=== PATIENT | male | born 1965 | race Asian ===

== ENCOUNTER 2020-10-02 12:35 | Outpatient (REF) | payer OTHER, SELFPAY ==
--- NOTE | ~2020-10-02 | XR_ITS ---
EXAMINATION: XR CHEST CLINICAL INFORMATION: Contact with and suspected exposure to other hazardous, chiefly nonmedicinal, chemicals. COMPARISON: None. TECHNIQUE: 2 views of the chest were obtained. FINDINGS: No significant abnormality is noted involving the heart, lungs, mediastinum, bony thorax or soft tissues. XR/XR chest 2V IMPRESSION: Unremarkable examination.
== END 2020-10-02 12:36 | disposition home or self-care (01) ==
LOC: HO.HMGCX 12:35
PROVIDERS: PCP Internal Medicine; Visit Provider Nurse Practitioner Family
DX: Z77.098 Contact with and (suspected) exposure to other hazardous, chiefly nonmedicinal, chemicals (principal)
CPT/HCPCS: 71046

== ENCOUNTER 2024-09-27 11:03 | Outpatient (REF) | payer OTHER, SELFPAY ==
--- NOTE | ~2024-09-27 | XR_ITS ---
EXAMINATION: XR KNEE, LEFT CLINICAL INFORMATION: M25.562 - Pain in left knee COMPARISON: December 22, 2018. TECHNIQUE: Two views of the left knee. FINDINGS: Joint space narrowing involving the medial compartment with sclerosis along the articular surface of the medial tibial plateau. Small marginal osteophyte formation and medial femoral condyle. Suprapatellar bursa joint effusion, moderate to large volume. No acute cortical disruption or gross malalignment. No lytic or blastic lesions. 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 Suprapatellar bursa joint effusion. Electronically signed by: Brian Amaya MD 09/27/2024 02:39 PM EDT
== END 2024-09-27 11:04 | disposition home or self-care (01) ==
LOC: HO.HMGCX 11:03
PROVIDERS: PCP Nurse Practitioner Family; Visit Provider Nurse Practitioner Family
DX: Z00.00 Encounter for general adult medical examination without abnormal findings (principal); I10 Essential (primary) hypertension; M25.562 Pain in left knee; G89.29 Other chronic pain; H52.10 Myopia, unspecified eye; Z71.85 Encounter for immunization safety counseling
CPT/HCPCS: 73560; 96127; 99202; 99386

== ENCOUNTER 2024-09-27 11:03 | Outpatient (AMB) | payer OTHER, SELFPAY ==
--- NOTE | 2024-09-27 11:07 | A.OFFPC_ITS ---
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 Note: patient here for new patient visit c/o swelling knee Customer Orders Clerk Required: No Allergies No Known Allergies Allergy (Verified 09/27/24 11:18) Medication List - Last Reconciled 09/27/24 by Robert Ingram CNP No Known Home Meds Tobacco use date assessed: 09/27/24 Dental Screening Dental Screen Date: 09/27/24 Did you have a dental visit in the last 12 months?: No Did you have a dental problem in the last 6 months where you did not have access to dental care?: No Was dental information given to patient?: Yes HPI HPI Comments History of Present Illness Details 58-year-old male presents to establish c are. He is not on medications. Prior PCP? - Roxy PETERSON Last office visit/CPE/labs - 4 years ago Acute issue(s) - He reports occasional headaches and vi sual disturbances. - He reports persistent pain above his l eft knee for the past 6-8 months and p rogressively worsened. He describes the pain as sharp, and intensifies with walking and prolonged standing. 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 He does not take pain medications because he does not like taking medication. He denies fall, injury, or trauma. - Myopia. He wears prescription glasses Past Medical History - Myopia Surgical History - None Family History - Dad: Asthma, cardiovascular disease, hypertension, diabetes - Mom: Hypertension Social History - Nonsmoker. Does not vape. Does not dri nk alcohol. Denies recreational drug use - Has been making healthy dietary choice s. Active but does not exercise. Generally sleep well Health maintenance - Last eye exam was 2 years ago. - Last dental visit was few months ago [place]; He will soon establish care with a dentist in the [facility] - Last tetanus vaccine was more than 10 years ago; He will receive the Tdap vaccine at his next visit - He has never been vaccinated for shing les - Has not been vaccinated for the flu season; declines vaccination - He has never had a colonoscopy done [facility] Family History (Updated 09/27/24 @ 11:19 by Meghan Rosas MA) Father Asthma High blood pressure Diabetes Cardiovascular disease Mother High blood pressure Social History Housing: House Patient Tobacco Use Status: Never used Tobacco e-Cigarette/Vaping Use: Never Used Second Hand Smoke Exposure: No service: No Current occupational status: employed 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 1. Little interest or pleasure in doing things: not at all 2. Feeling down, depressed, or hopeless: not at all 3. Trouble falling or staying asleep, or sleeping too much: not at all 4. Feeling tired or having little energy: not at all 5. Poor appetite or overeating: not at all 6. Feeling bad about yourself - or that you are a failure or have let yourself or your family down: not at all 7. Trouble concentrating on things, such as reading the newspaper or watching television: not at all 8. Moving or speaking so slowly that other people could have noticed. Or the opposite - being so fidgety or restless that you have been moving around a lot more than usual: not at all 9. Thoughts that you would be better off or of hurting yourself in some way: not at all Total score: 0 Depression Screening Interpretation: Negative Depression Screening Done: Yes 46162 - PHQ-9 Billing: Yes Source: Developed by Drs. Clark Kingston, Monica Neumann, Dimitri Herr and colleagues, with an educational refugio from [employer]. Thrive Questionnaire Date Thrive assessed: 09/27/24 I am a: Patient What is your living situation today?: I have a steady place to live Within the past 12 months, did the food you bought not last and you didn't have the money to get more?: Never true Within the past 12 months, did you worry whether your food would run out before you got money to buy more?: Never true Do you have trouble paying for medicines?: No Do you have trouble getting transportation to medical appointments?: No Do you have trouble paying your heating and electricity bill?: No Do you have trouble taking care of your child, family member or friend?: No Do you have trouble with day-to-day activities such as bathing, preparing meals, shopping, managing finances, etc.?: No Are you currently unemployed and looking for a job?: No Are you interested in more education?: No Please select the resources that you would like help with: None Currently or been in a relationship where the following occur: No concerns reported THRIVE Score: 0 AUDIT C Alcohol Use Questionnaire (AUDIT-C) 1. How often do you have a drink containing alcohol?: Never 3. How often do you have six or more drinks on one occasion?: Never Total Score: 0 Score Reviewed/Action Taken: Yes MACY-7 AMB Questionnaire MACY-7 Date MACY - 7 assessed: 09/27/24 Feeling nervous, anxious, or on edge: 0 = Not at all Not being able to stop or control worryin = Not at all Worrying too much about different things: 0 = Not at all Trouble relaxin = Not at all Being so restless that it is hard to sit still: 0 = Not at all Becoming easily annoyed or irritable: 0 = Not at all Feeling afraid as if something awful might happen: 0 = Not at all Total MACY-7 score (0-4 normal; 5-9 mild; 10-14 moderate; 15-21 severe): 0 Source: Developed by Drs. Clark Kingston, Monica Neumann, Dimitri Herr and colleagues, with an educational refugio from [employer]. MACY-7 Assessment Billing MACY-7 Assessment Tool: MACY-7 Assessment 25008 Review of Systems Const Details: Denies chills, Denies fatigue, Denies fever(s), Denies headache(s) and Denies weakness HEENT Denies change in vision, Denies dizziness, Denies headache(s), Denies hearing loss, Denies nasal congestion, Denies sinus pain, Denies sinus pressure and Denies sore throat Card Denies chest pain, Denies lightheadedness, Denies dyspnea and Denies other (palpitations) Resp Denies cough, Denies dyspnea and Denies wheezing GI Denies abdominal pain, Denies melena, Denies hematochezia, Denies change in bowel habits, Denies dyspepsia and Denies nausea Denies hematuria and Denies dysuria Musc Report pain above the left knee, Denies abnormal gait, Denies numbness and Denies tingling Skin/Breast Denies rash, Denies unusual bruising and Denies wounds Neuro Denies abnormal gait, Denies dizziness, Denies headache(s), Denies memory loss, Denies numbness, Denies Sensory deficit (Neuro), Denies tingling and Denies weakness Psych Denies anxiety, Denies depression and Denies memory loss Endo Denies cold intolerance, Denies fatigue, Denies heat intolerance, Denies polydipsia and Denies polyuria Jared/Lymph Denies easy bleeding and Denies easy bruising Aller/Immun Denies wheezing Physical exam (Primary Care) Vital Signs: Last Vital Signs Temp 98.4 F 09/27/24 11:13 Pulse 68 09/27/24 11:31 Resp 16 09/27/24 11:13 BP 164/82 H 09/27/24 13:11 Pulse Ox 99 09/27/24 11:13 Oxygen Delivery Method Room Air 09/27/24 11:13 BMI result Body Mass Index 29.6 Tobacco/Smoking Status: Tobacco use Status Tobacco use date assessed 09/27/24 09/27/24 11:13 Patient Tobacco Use Status Never used Tobacco 09/27/24 11:13 e-Cigarette/Vaping Use Never Used 09/27/24 11:13 PHQ-9: PHQ-9 Score PHQ-9: Total score 0 09/27/24 13:11 Depression Screening Interpretation: Negative Thrive Assessment: Date of Thrive Assessment Date Thrive assessed 09/27/24 09/27/24 11:13 Currently or been in a relationship where the following occur: No concerns reported Const Other: General: no acute distress, well developed, alert and awake Nutritional Appearance: well nourished Orientation/consciousness: patient oriented x3 HENMT Head: Yes normocephalic and Yes atraumatic Ears: hearing grossly normal bilaterally and TM's normal bilaterally General nose exam: Normal external nose present and Normal nares present Mouth: Normal oral and palatal mucosa present and moist mucous membranes Teeth and gingiva: dentition normal Throat: Yes oropharynx normal Eyes Pupils: Equal, round and reactive pupils present and Pupil accommodation reflex normal EOM: EOMs intact bilaterally Neck Neck: Yes normal visual inspection, Yes no lymphadenopathy and Yes trachea midline Thyroid: Thyroid normal Carotids: no bruits Lymphatic: no lymphadenopathy noted Chest Chest palpation & inspection: normal inspection of the chest Resp Effort & Inspection: normal respiratory effort Auscultation: clear to auscultation bilaterally Cardio Rate: regular rate Rhythm: regular rhythm Heart sounds: S1 normal heart sound present, S2 normal heart sound present, no gallops, no murmurs and no rubs Bruits: no abdominal aortic bruits and no carotid bruits GI Palpation (GI): No Abdominal aortic bruit present, Soft to palpation, nontender, No hepatosplenomegaly present and No Rebound tenderness present Auscultation: normal bowel sounds General: Yes no CVA tenderness Back/Spine/Pelvis Back: no CVA tenderness Cervical Spine: cervical ROM normal and No Cervical spine tenderness Thoracic/Lumbar Spine: thoraco-lumbar ROM normal, No pain with thoraco-lumbar ROM, No thoracic spinal tenderness and No lumbar spinal tenderness Skin General: warm and dry. Normal skin color. Normal skin turgor Lesions: no lesions Rashes: no rashes Trauma: no lacerations or abrasions Wounds: no wounds Nails: normal Neuro General: patient oriented x3, gait normal and CN's II-XI intact bilaterally Cranial nerves: Yes Equal, round and reactive pupils present Cognition (Neuro): normal cognition Gait exam (Neuro): Normal gait present Motor exam (neuro): 5/5 motor strength present throughout Sensory Exam: No Sensory deficit (Neuro) Deep tendon reflexes (DTR's): Right patellar reflex intensity grade: 2+ and Left patellar reflex intensity grade: 2+ Extrem General: Yes normal to inspection, No calf tenderness. Tenderness to palpation above the left knee. Mild swelling noted to the area. No erythema noted Psych Appearance: grossly normal Affect: normal affect Attitude: cooperative Thought process: Normal thought process present Coding Level of Care Code New Pt Level 5 (42449) New Pt Prev Care 40-64y(12869) Diagnoses Normal physical examination, routine Z00.00 Hypertension I10 Chronic pain of left knee M25.562; G89.29 Myopia H52.10 Colon cancer screening Z12.11 Vaccine counseling Z71.85 Laboratory tests ordered as part of a complete physical exam (CPE) Z00.00 Additional Codes MACY-7 Assessment Billing - MACY-7 Assessment Tool: MAYC-7 Assessment 12745 ([id number]) PHQ-9 - 70821 - PHQ-9 Billing: Yes ([id number]) Assessment & Plan Assessment & Plan (1) Normal physical examination, routine: Code(s): Z00.00 - Encounter for general adult medical examination without abnormal fin dings Category: Medical Plan: No significant functional limitations noted. Healthy diet and routine exercise encouraged. Perform lab work and x-ray and follow-up for hypertension and labs/imaging review in 2 weeks. Return sooner with symptoms or concerns. Verbalized understanding and agreed with the plan. (2) Hypertension: Code(s): I10 - Essential (primary) hypertension Category: Medical Plan: Resting blood pressure is 170/84, above goal of less than 140/90. He experiences occasional headaches and visual disturbances which may be attributed to elevated blood pressure. His blood pressure improved to 164/82 after 0.2 mg of clonidine. Lisinopril 20 mg daily ordered; advised to take as prescribed. Instructed on the risks, benefits, and potential adverse reactions of the medication. Routine exercise and low-sodium diet encouraged. Perform lab work and follow-up in 2 weeks for hypertension and labs review. Return sooner with symptoms or concerns. Verbalized understanding and agreed with the treatment plan. (3) Chronic pain of left knee: Code(s): M25.562 - Pain in left knee; G89.29 - Other chronic pain Category: Medical Plan: He reports persistent pain above his left knee for the past 6-8 months and progressively worsened. He describes the pain as sharp, and intensifies with walking and prolonged standing. 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 He does not take pain medications because he does not like taking medication. He denies fall, injury, or trauma. Tenderness to palpation above the left knee. Mild swelling noted to the area. No erythema noted. Tendonitis is likely. Naproxen 500 mg twice daily ordered; advised to take as prescribed and with food. Instructed on the risks, benefits, and potential adverse reactions of the medication. Warm/cool compresses encouraged. Encouraged to avoid prolonged standing. X-ray ordered. Will review results and make changes as needed. Follow-up with worsening or new symptoms. Verbalized understanding and agreed with the plan (4) Myopia: Code(s): H52.10 - Myopia, unspecified eye Category: Medical Plan: His last eye exam was 2 years ago. Referred to Ophthalmology for routine eye care. (5) Colon cancer screening: Code(s): Z12.11 - Encounter for screening for malignant neoplasm of colon Category: Medical Plan: He has never had a colonoscopy done. Referred to [facility] gastroenterology for colonoscopy. (6) Vaccine counseling: Code(s): Z71.85 - Encounter for immunization safety counseling Category: Medical Plan: He has never been vaccinated for shingles. Instructed on the importance of vaccinated and encouraged to get the vaccine from the local pharmacy. Verbalized understanding and agreed with plan. (7) Laboratory tests ordered as part of a complete physical exam (CPE): Code(s): Z00.00 - Encounter for general adult medical examination without abnormal findings Category: Medical Plan: Fasting labs ordered as part of a complete physical exam. Advised to fast for at least 10 hours before getting labs drawn. May drink water Verbalized understanding and agreed with treatment plan. Orders: Orders Comprehensive [place]. Panel Fast Today Z00.00 - Encounter for general adult medical examination without abnormal findings Microalbumin, Random (w Creat) Today Z00.00 - Encounter for general adult medical examination without abnormal findings PSA, Ultra Sensitive Today Z00.00 - Encounter for general adult medical examination without abnormal findings UA CC w/rflx Micro + Cult Today Z00.00 - Encounter for general adult medical examination without abnormal findings Vitamin D 25-OH Total Today Z00.00 - Encounter for general adult medical examination without abnormal findings Complete Blood Count Auto Diff Today Z00.00 - Encounter for general adult medical examination without abnormal findings Lipid Panel Today Z00.00 - Encounter for general adult medical examination without abnormal findings TSH reflex Free T4 Today Z00.00 - Encounter for general adult medical examination without abnormal findings XR knee LT 2V Today G89.29 - Other chronic pain, M25.562 - Pain in left knee Referrals Gastroenterology Referral Z12.11 - Encounter for screening for malignant neoplasm of colon Ophthalmology Referral Z01.00 - Encounter for examination of eyes and vision without abnormal findings Medications: New naproxen 500 mg PO BID PRN 60 tabs 1RF pain lisinopril 20 mg PO DAILY 30 days 30 tabs 3RF Patient Instructions: Total time for this visit is 75 minutes, 50 minutes with patient and 25 minutes reviewing, coordinating plan of care, and documenting.
[2024-09-27 11:13] VITALS: BP 175/91; PULSE 66; RESP 16; TEMP 36.9; O2SAT 99; BMI 29.6
[2024-09-27 11:31] VITALS: BP 170/84; PULSE 68
[2024-09-27 12:47] VITALS: BP 170/90
[2024-09-27 13:11] VITALS: BP 164/82
== END 2024-09-27 11:51 | disposition home or self-care (01) ==
LOC: HO.HMCFM 11:04
PROVIDERS: PCP Nurse Practitioner Family; Visit Provider Nurse Practitioner Family
DX: Z00.00 Encounter for general adult medical examination without abnormal findings (principal); I10 Essential (primary) hypertension; M25.562 Pain in left knee; G89.29 Other chronic pain; Z12.11 Encounter for screening for malignant neoplasm of colon; Z71.85 Encounter for immunization safety counseling; H52.10 Myopia, unspecified eye

== ENCOUNTER 2024-09-27 13:25 | Outpatient (REF) | payer OTHER, SELFPAY ==
[2024-09-27 18:00] LABS: Appearance Urine Clear; Color Urine Yellow; Glucose Urine UA Negative (Negative); Leukocyte Esterase Urine Negative (Negative); Nitrite Urine Negative (Negative); PH 6.5 (5.0-9.0); Urine Blood Negative (Negative); Urine Ketones Negative (Negative); Urine Protein Negative (Neg-Trace)
[2024-09-27 18:04] LABS: MANUAL DIFF FLAG NO
[2024-09-27 18:14] LABS: Basophils Absolute Auto 0.1 X10*3/uL (0.0-0.2); Eosinophils Absolute Auto 0.3 X10*3/uL (0.0-0.4); Eosinophils Percent Auto 3.8 % (0-4); Hematocrit 41.2 % (42.0-52.0); Hemoglobin 13.5 g/dl (14.0-18.0); Imm Gran Abs Auto 0.02 X10*3/uL (0.00-0.03); Imm Gran Pct Auto 0.3 % (0.0-0.4); Lymphocytes Absolute Auto 1.8 X10*3/uL (1.2-4.9); Lymphocytes Percent Auto 26.1 % (20-40); Mean Corpuscular HGB Conc 32.8 g/dl (31.0-36.0); Mean Corpuscular Hemoglobin 30.8 pg (27.0-33.0); Mean Corpuscular Volume 94.1 fL (80.0-98.0); Mean Platelet Volume 11.8 fL (9.4-12.4); Monocytes Absolute Auto 0.5 X10*3/uL (0.1-1.2); Monocytes Percent Auto 7.3 % (2-11); Neutrophils Absolute Auto 4.2 x10*3/uL (2.0-8.3); Neutrophils Percent Auto 61.5 % (45-73); Platelet Count 176 X10*3/uL (160-400); Red Blood Count 4.38 X10*6/uL (4.60-5.80); White Blood Count 6.8 X10*3/uL (4.8-10.8)
[2024-09-27 18:39] LABS: Creatinine Urine 77.15 mg/dL; Microalbum/Creatinine Ratio Ur 18.1 ug/mg cr (<30)
[2024-09-27 18:44] LABS: Alanine Aminotransferase 17 U/L (0-40); Alkaline Phosphatase 68 U/L (39-117); Anion Gap 13 (12-20); Aspartate Amino Transferase 22 U/L (5-37); Bilirubin Total 0.5 mg/dL (0.0-1.0); Blood Urea Nitrogen 11 mg/dL (9-16); Calcium 9.2 mg/dL (8.4-10.2); Carbon Dioxide 29 mmol/L (22-29); Chloride 102 mmol/L (96-108); Cholesterol 242 mg/dL (<200); Estimated Glomerular Filt Rate > 60; Glucose Fasting 96 mg/dL (60-99); HDL Cholesterol 43 mg/dL (>40); LDL Cholesterol Calculated 162 mg/dL (<100); Potassium 4.3 mmol/L (3.3-5.1); Sodium 140 mmol/L (135-145); Triglycerides 188 mg/dL (<150)
[2024-09-27 18:51] LABS: Vitamin D 25-OH Total 28.2 ng/mL (>30)
[2024-10-02 10:09] LABS: PSA, Ultra Sensitive 0.64 ng/mL
== END 2024-09-27 13:26 | disposition home or self-care (01) ==
LOC: HO.WFDLDS 13:25
PROVIDERS: Visit Provider Nurse Practitioner Family
DX: Z00.00 Encounter for general adult medical examination without abnormal findings (principal)
CPT/HCPCS: 36415; 80053; 80061; 81003; 82043; 82306; 82570; 84153; 84443; 85025

== ENCOUNTER → 2024-09-27 14:09 | Outpatient (BNV) | payer OTHER, SELFPAY | PROVIDERS: PCP Nurse Practitioner Family; Visit Provider Radiology Diagnostic Radiology | DX: M17.12 Unilateral primary osteoarthritis, left knee (principal); M25.462 Effusion, left knee | CPT/HCPCS: 73560 ==

== ENCOUNTER 2024-10-17 13:45 | Outpatient (AMB) | payer OTHER, SELFPAY ==
--- NOTE | 2024-10-17 13:49 | A.OFFPC_ITS ---
Vital Signs 10/17/24 13:52 Height 5 ft 10 in Weight 207 lb 2 oz BMI 29.7 BP 138/71 Blood Pressure Location Lt brachial Position Sitting Respiration 16 Pulse 70 Pulse Source Pulse Oximeter Temp 98.5 F Temp Source Oral Pulse Oximetry (%) 96 Oxygen Delivery Method Room Air Intake Visit Reasons: 2 wks HTN, labs/imaging review/TDaP Intake Note: patient here for 2 wks HTN, labs, imaging review and TDaP Intelligence Analyst Required: No Allergies No Known Allergies Allergy (Verified 10/17/24 14:14) Medication List - Last Reconciled 10/17/24 by Robert Ingram CNP lisinopril 20 mg PO DAILY 30 days naproxen 500 mg PO BID PRN Tobacco use date assessed: 10/17/24 Dental Screening Dental Screen Date: 10/17/24 Did you have a dental visit in the last 12 months?: No Did you have a dental problem in the last 6 months where you did not have access to dental care?: No Was dental information given to patient?: Yes HPI HPI Comments History of Present Illness Details 58-year-old male presents for hypertensi on and recent labs/imaging review follow-up. He admits to taking lisinopril as prescribed without adverse reactions. He has not taking naproxen because his left knee pain is not severe. He has been making healthy dietary choices and exercising routinely. He denies acute symptoms at this time. Recent x-ray of the left knee revealed the following: IMPRESSION: Tricompartmental for stenosis involving mostly the medial compartment. Suprapatellar bursa joint effusion. 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 Current occupational exposures/hazards: No Cognitive needs: No Hearing needs: No Vision needs: Yes Questionnaire Thrive Questionnaire Date Thrive assessed: 09/20/24 I am a: Patient What is your living situation today?: I have a steady place to live Within the past 12 months, did the food you bought not last and you didn't have the money to get more?: Never true Within the past 12 months, did you worry whether your food would run out before you got money to buy more?: Never true Do you have trouble paying for medicines?: No Do you have trouble getting transportation to medical appointments?: No Do you have trouble paying your heating and electricity bill?: No Do you have trouble taking care of your child, family member or friend?: No Do you have trouble with day-to-day activities such as bathing, preparing meals, shopping, managing finances, etc.?: No Are you currently unemployed and looking for a job?: No Are you interested in more education?: No Please select the resources that you would like help with: None Currently or been in a relationship where the following occur: No concerns reported THRIVE Score: 0 MACY-7 AMB Questionnaire MACY-7 Date MACY - 7 assessed: 09/27/24 Source: Developed by Drs. Clark Kingston, Monica Neumann, Dimitri Herr and colleagues, with an educational refugio from [employer]. Review of Systems Const Details: Const Denies chills, Denies fatigue, Denies fever(s), Denies headache(s) and Denies weakness ENT Denies dizziness and Denies headache(s) Card Denies chest pain, Denies lightheadedness, Denies dyspnea and Denies other (Palpitations) Resp Denies cough, Denies dyspnea, Denies wheezing and Denies other ( shortness of breath) GI Denies abdominal pain, Denies melena, Denies hematochezia, Denies change in bowel habits, Denies dyspepsia and Denies nausea Denies hematuria and Denies dysuria Musc Reports left knee pain, Denies abnormal gait, Denies numbness and Denies tingling Skin/Breast Denies rash, Denies unusual bruising and Denies wounds Neuro Denies abnormal gait, Denies dizziness, Denies headache(s), Denies memory loss, Denies numbness, Denies Sensory deficit (Neuro), Denies tingling and Denies weakness Psych Denies anxiety, Denies depression, Denies memory loss Endo Denies cold intolerance, Denies fatigue, Denies heat intolerance, Denies polydipsia and Denies polyuria Aller/Immun Denies wheezing Physical exam (Primary Care) Vital Signs: Last Vital Signs Temp 98.5 F 10/17/24 13:52 Pulse 70 10/17/24 13:52 Resp 16 10/17/24 13:52 BP 138/71 10/17/24 13:52 Pulse Ox 96 10/17/24 13:52 Oxygen Delivery Method Room Air 10/17/24 13:52 BMI result Body Mass Index 29.7 Tobacco/Smoking Status: Tobacco use Status Tobacco use date assessed 10/17/24 10/17/24 13:55 Patient Tobacco Use Status Never used Tobacco 10/17/24 13:49 e-Cigarette/Vaping Use Never Used 10/17/24 13:49 Thrive Assessment: Date of Thrive Assessment Date Thrive assessed 09/20/24 10/17/24 13:49 Currently or been in a relationship where the following occur: No concerns reported Const Other: General: no acute distress and well developed Nutritional Appearance: well nourished Orientation/consciousness: patient oriented x3 HENMT Head: Yes normocephalic and Yes atraumatic Eyes General: appearance normal, both eyes and all related structures Pupils: Equal, round and reactive pupils present EOM: EOMs intact bilaterally Resp Effort & Inspection: normal respiratory effort Auscultation: clear to auscultation bilaterally Cardio Rate: regular rate Rhythm: regular rhythm Heart sounds: S1 normal heart sound present, S2 normal heart sound present, no gallops, no murmurs and no rubs GI Palpation (GI): No Abdominal aortic bruit present, Soft to palpation, nontender, No hepatosplenomegaly present and No Rebound tenderness present Auscultation: normal bowel sounds General: Yes no CVA tenderness Back/Spine/Pelvis Back: no CVA tenderness Cervical Spine: cervical ROM normal and No Cervical spine tenderness Thoracic/Lumbar Spine: thoraco-lumbar ROM normal, No pain with thoraco-lumbar ROM, No thoracic spinal tenderness and No lumbar spinal tenderness Extrem General: Yes normal to inspection, No edema and No calf tenderness Skin General: warm and dry. Normal skin color. Normal skin turgor Neuro General: patient oriented x3, gait normal and no focal neuro deficit Cranial nerves: Yes Equal, round and reactive pupils present Cognition (Neuro): normal cognition Gait exam (Neuro): Normal gait present Sensory Exam: No Sensory deficit (Neuro) Psych Appearance: grossly normal Affect: normal affect Attitude: cooperative Thought process: Normal thought process present Coding Level of Care Code Est Pt Level 4 (18254) Diagnoses Hypertension I10 Hyperlipidemia E78.5 Normocytic anemia D64.9 Vitamin D deficiency E55.9 Osteoarthritis of left knee M17.12 Assessment & Plan Assessment & Plan (1) Hypertension: Code(s): I10 - Essential (primary) hypertension Category: Medical Plan: Resting blood pressure is 130/71, within goal of less than 140/90. Continue treatment regimen. Low-sodium diet and routine exercise encouraged. Follow-up in 2 months or sooner with symptoms or concerns. Verbalized understanding and agreed with the plan. (2) Hyperlipidemia: Code(s): E78.5 - Hyperlipidemia, unspecified Category: Medical Plan: Recent triglyceride, total cholesterol, and LDL levels are elevated, 188, 242, and 162 respectively. Likely due to poor diet. Declines medication treatment at this time and notes that he will continue to make healthy lifestyle changes. Advised to limit foods high in saturated fat and avoid foods high in trans fat. Routine exercise encouraged. Fast for 10-12 hours, may drink water, and perform lipid panel blood work 2-3 days before next visit. Follow-up in 2 months. Verbalized understanding and agreed with the plan. (3) Normocytic anemia: Code(s): D64.9 - Anemia, unspecified Category: Medical Plan: Recent RBC and H&H is slightly elevated, 4.38, 13.5/41.2 respectively. MCV is normal. Will check iron profile, ferritin, vitamin B12, and folate levels. Will make changes as needed. Verbalized understanding and agreed with the plan. (4) Vitamin D deficiency: Code(s): E55.9 - Vitamin D deficiency, unspecified Category: Medical Plan: Recent vitamin-D level is slightly low, 28.2. Vitamin D3 25 mcg daily ordered; advised to take as prescribed. Informed that the sun is a good source of vitamin-D. Will recheck vitamin-D level in 2 months. Verbalized understanding and agreed with the plan. (5) Osteoarthritis of left knee: Code(s): M17.12 - Unilateral primary osteoarthritis, left knee Category: Medical Plan: Recent x-ray of the left ear revealed the following: IMPRESSION: Tricompartmental for stenosis involving mostly the medial compartment. Suprapatellar bursa joint effusion. Advised to continue current treatment regimen. Referred [place] [facility] [place]. Follow-up as needed. Verbalized understanding and agreed with the plan. Orders: Orders IRON PROFILE Today D64.9 - Anemia, unspecified Vitamin B12 and Folate Today D64.9 - Anemia, unspecified Ferritin Today D64.9 - Anemia, unspecified Lipid Panel 2 Months E78.5 - Hyperlipidemia, unspecified Vitamin D 25-OH Total 2 Months E55.9 - Vitamin D deficiency, unspecified Referrals Orthopedics Referral M17.12 - Unilateral primary osteoarthritis, left knee Medications: New cholecalciferol (vitamin D3) 25 mcg PO DAILY 90 days 90 tabs 3RF
[2024-10-17 13:52] VITALS: BP 138/71; PULSE 70; RESP 16; TEMP 36.9; O2SAT 96; BMI 29.7
== END 2024-10-17 14:32 | disposition home or self-care (01) ==
LOC: HO.HMCFM 13:46
PROVIDERS: PCP Nurse Practitioner Family; Visit Provider Nurse Practitioner Family
DX: I10 Essential (primary) hypertension (principal); E78.5 Hyperlipidemia, unspecified; D64.9 Anemia, unspecified; E55.9 Vitamin D deficiency, unspecified; M17.12 Unilateral primary osteoarthritis, left knee

== ENCOUNTER → 2024-10-17 13:45 | Outpatient (BNVA) | payer OTHER, SELFPAY | PROVIDERS: PCP Nurse Practitioner Family; Visit Provider Nurse Practitioner Family | DX: I10 Essential (primary) hypertension (principal); E78.5 Hyperlipidemia, unspecified; D64.9 Anemia, unspecified; E55.9 Vitamin D deficiency, unspecified; M17.12 Unilateral primary osteoarthritis, left knee | CPT/HCPCS: 99212 ==

== ENCOUNTER 2024-10-17 14:47 | Outpatient (REF) | payer OTHER, SELFPAY ==
[2024-10-17 18:06] LABS: Iron 64 mcg/dL (45-160); Percent Iron Saturation 23 % (15-50); Total Iron Binding Capacity 278 mcg/dL (228-428); Unsaturated Iron Binding 214 ug/dL
[2024-10-17 18:21] LABS: Ferritin 23 ng/mL (20-250)
[2024-10-17 18:32] LABS: Folate 13.7 ng/mL (> or = 4.0); Vitamin B12 200 pg/mL (200-900)
== END 2024-10-17 14:48 | disposition home or self-care (01) ==
LOC: HO.WFDLDS 14:47
PROVIDERS: Visit Provider Nurse Practitioner Family
DX: D64.9 Anemia, unspecified (principal)
CPT/HCPCS: 36415; 82607; 82728; 82746; 83540

== ENCOUNTER 2024-12-12 11:17 | Outpatient (AMB) | payer OTHER, SELFPAY ==
--- NOTE | 2024-12-12 11:25 | A.OFFVIS_ITS ---
Vital Signs 12/12/24 11:30 Height 5 ft 10 in Weight 200 lb BMI 28.7 Intake Visit Reasons: Left knee pain and giving way Intake Note: Lloyd is a 58 year old male who presents with complaints of progressively worsening left knee pain and giving way. He describes his pain as sharp in nature. Most of the pain is along the medial aspect of his knee. The patient's symptoms have gotten worse over the last 5 years in spite of continued non operative treatments. He has failed the last 6 weeks of conservative treatment which has included Tylenol, Naprosyn and a home exercise program. He states that his left knee will give out several times per day. 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 Current occupational exposures/hazards: No Cognitive needs: No Hearing needs: No Vision needs: Yes Physical Exam Vital Signs: BMI result Body Mass Index 28.7 Const Other: Well-nourished well-developed very friendly male awake alert and oriented x3 in no acute distress Extrem Other: Bilateral lower extremity examination shows good capillary refill, no skin lesions noted, normal sensation light touch Left knee examination shows a minimal effusion, minimal crepitus with range of motion, tenderness along his medial joint line, positive Camila's test, no instability Results Reviewed Results Reviewed: Standing full weight-bearing x-rays of the patient's left knee show minimal joint space narrowing, no acute bony abnormalities Assessment & Plan Assessment & Plan (1) Tear of medial meniscus of left knee: Code(s): S83.242A - Other tear of medial meniscus, current injury, left knee, initial encounter Category: Medical Plan Mr. Mabry presents with progressively worsening left knee pain and mechanical symptoms most likely due to a medial meniscus tear. Thus, I will send the patient for an MRI of his left knee for further evaluation. I will see him back once the MRI is completed to discuss the findings and treatment options. Feel free to call me at any time should questions regarding his orthopedic management arise. Thank you very much for asking me to see this very friendly gentleman. I spent 22 minutes in reviewing the patient's records and imaging studies, seeing the patient and documenting in the medical record. Orders: Orders MR knee LT wo con 12/13/24 S83.242A - Other tear of medial meniscus, current injury, left knee, initial encounter Coding Level of Care Code New Pt Level 3 (03992) Complex EM visit Add On G2211 Diagnoses Tear of medial meniscus of left knee S83.242A
[2024-12-12 11:30] VITALS: BMI 28.7
== END 2024-12-12 11:48 | disposition home or self-care (01) ==
LOC: HO.HOS 11:18
PROVIDERS: PCP Nurse Practitioner Family; Visit Provider Orthopaedic Surgery
DX: S83.242A Other tear of medial meniscus, current injury, left knee, initial encounter (principal)
CPT/HCPCS: 99203

== ENCOUNTER → 2024-12-12 11:17 | Outpatient (BNVA) | payer OTHER, SELFPAY | PROVIDERS: PCP Nurse Practitioner Family; Visit Provider Orthopaedic Surgery | DX: M25.562 Pain in left knee (principal); S83.242A Other tear of medial meniscus, current injury, left knee, initial encounter | CPT/HCPCS: 99202 ==

== ENCOUNTER 2024-12-16 09:56 | Outpatient (REF) | payer OTHER, SELFPAY ==
[2024-12-16 13:22] LABS: Cholesterol 223 mg/dL (<200); HDL Cholesterol 39 mg/dL (>40); Triglycerides 228 mg/dL (<150)
== END 2024-12-16 09:57 | disposition home or self-care (01) ==
LOC: HO.WFDLDS 09:56
PROVIDERS: Visit Provider Nurse Practitioner Family
DX: E78.5 Hyperlipidemia, unspecified (principal); E55.9 Vitamin D deficiency, unspecified
CPT/HCPCS: 36415; 80061; 82306

== ENCOUNTER 2024-12-19 19:00 | Outpatient (REF) | payer OTHER, SELFPAY ==
--- NOTE | ~2024-12-19 | MR_ITS ---
EXAMINATION: MRI LEFT KNEE WITHOUT CONTRAST HISTORY: S83.242A - Other tear of medial meniscus, current injury, left knee COMPARISON: Correlation is made with plain films of the left knee dated 09/27/2024. TECHNIQUE: Coronal T1 and fat-suppressed proton density, sagittal proton density and fat-suppressed proton density, and axial fat suppressed T2 weighted MR images of the left knee were obtained. FINDINGS: Bone marrow: Bone marrow signal intensity is normal. Joint effusion: There is a large suprapatellar joint effusion. Joy's cyst: There is a Joy's cyst measuring approximately 4.4 x 1.2 x 1.5 cm. Articular cartilage: There is moderate osteoarthritis of the medial compartment with cartilage loss and osteophyte formation. There is mild to moderate osteoarthritis involving the patellofemoral compartment. Muscles/soft tissues: The visualized muscles demonstrate normal signal intensity. Anterior cruciate ligament: Intact Posterior cruciate ligament: Intact Medial collateral ligament: Intact Lateral collateral ligament: There is increased signal intensity at the origin of the fibular collateral ligament which may represent a sprain. Medial meniscus: There is partial extrusion of the body of the medial meniscus which demonstrates intrasubstance increased signal intensity. The posterior horn of the medial meniscus is diminutive in size and irregular in shape, compatible with a degenerative tear. Lateral meniscus: Intact Flexor mechanism: The popliteus, gastrocnemius, and hamstring tendons are intact. Quadriceps tendon: Intact Patellar tendon: Intact Patellar retinacula: Intact MR/MR knee LT wo con IMPRESSION: 1. Moderate osteoarthritis of the medial compartment and mild to moderate osteoarthritis of the patellofemoral compartment. 2. Large suprapatellar joint effusion. Joy's cyst as described. 3. Findings suggestive of a degenerative tear involving the posterior horn of the medial meniscus. 3. Probable sprain of the origin of the fibular collateral ligament. Electronically signed by: Clark Antony MD 12/20/2024 07:39 AM EDT
== END 2024-12-19 19:01 | disposition home or self-care (01) ==
LOC: HO.MRI 19:00
PROVIDERS: PCP Nurse Practitioner Family; Visit Provider Orthopaedic Surgery
DX: S83.242A Other tear of medial meniscus, current injury, left knee, initial encounter (principal)
CPT/HCPCS: 73721

== ENCOUNTER → 2024-12-19 19:04 | Outpatient (BNV) | payer OTHER, SELFPAY | PROVIDERS: PCP Nurse Practitioner Family; Visit Provider Radiology Diagnostic Radiology | DX: M17.12 Unilateral primary osteoarthritis, left knee (principal); M25.462 Effusion, left knee; M71.22 Synovial cyst of popliteal space [Baker], left knee | CPT/HCPCS: 73721 ==

== ENCOUNTER 2024-12-20 08:30 | Outpatient (AMB) | payer OTHER, SELFPAY ==
--- NOTE | 2024-12-20 08:33 | MHC.PC.OV ---
Vital Signs 12/20/24 08:37 Height 5 ft 10 in Weight 199 lb BMI 28.6 BP 136/66 Blood Pressure Location Lt brachial Position Sitting Respiration 16 Pulse 62 Pulse Source Pulse Oximeter Temp 97.3 F Temp Source Temporal Artery Scan Pulse Oximetry (%) 99 Oxygen Delivery Method Room Air Intake Visit Reasons: 2 mos HTN, HLD, vit d def Intake Note: Lloyd presents in the office today to go over his most recent labs and Hypertension. Allergies No Known Allergies Allergy (Verified 12/20/24 08:42) Medication List - Last Reconciled 12/20/24 by Robert Ingram CNP cholecalciferol (vitamin D3) 25 mcg PO DAILY 90 days lisinopril 20 mg PO DAILY 30 days Tobacco use date assessed: 12/20/24 Dental Screening Dental Screen Date: 12/20/24 Did you have a dental visit in the last 12 months?: No Did you have a dental problem in the last 6 months where you did not have access to dental care?: No Was dental information given to patient?: No HPI HPI Comments History of Present Illness Details 58-year-old male presents for hypertension, hyperlipidemia, and vitamin-D deficiency follow-up. He admits to taking lisinopril and vitamin D3 as prescribed without adverse reactions. He notes that he has been making healthy lifestyle changes. No acute symptoms at this time. 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 Current occupational exposures/hazards: No Cognitive needs: No Hearing needs: No Vision needs: Yes Questionnaire Thrive Questionnaire Date Thrive assessed: 09/20/24 I am a: Patient What is your living situation today?: I have a steady place to live Within the past 12 months, did the food you bought not last and you didn't have the money to get more?: Never true Within the past 12 months, did you worry whether your food would run out before you got money to buy more?: Never true Do you have trouble paying for medicines?: No Do you have trouble getting transportation to medical appointments?: No Do you have trouble paying your heating and electricity bill?: No Do you have trouble taking care of your child, family member or friend?: No Do you have trouble with day-to-day activities such as bathing, preparing meals, shopping, managing finances, etc.?: No Are you currently unemployed and looking for a job?: No Are you interested in more education?: No Please select the resources that you would like help with: None Currently or been in a relationship where the following occur: No concerns reported THRIVE Score: 0 MACY-7 AMB Questionnaire MACY-7 Date MACY - 7 assessed: 09/27/24 Source: Developed by Drs. Clark Kingston, Monica Neumann, Dimitri Herr and colleagues, with an educational refugio from [employer]. Review of Systems Const Details: Const Denies chills, Denies fatigue, Denies fever(s), Denies headache(s) and Denies weakness ENT Denies dizziness and Denies headache(s) Card Denies chest pain, Denies lightheadedness, Denies dyspnea and Denies other (Palpitations) Resp Denies cough, Denies dyspnea, Denies wheezing and Denies other ( shortness of breath) GI Denies abdominal pain, Denies melena, Denies hematochezia, Denies change in bowel habits, Denies dyspepsia and Denies nausea Denies hematuria and Denies dysuria Musc Denies abnormal gait, Denies myalgias, Denies arthralgias, Denies numbness and Denies tingling Skin/Breast Denies rash, Denies unusual bruising and Denies wounds Neuro Denies abnormal gait, Denies dizziness, Denies headache(s), Denies memory loss, Denies numbness, Denies Sensory deficit (Neuro), Denies tingling and Denies weakness Psych Denies anxiety, Denies depression, Denies memory loss Endo Denies cold intolerance, Denies fatigue, Denies heat intolerance, Denies polydipsia and Denies polyuria Aller/Immun Denies wheezing Physical exam (Primary Care) Tobacco/Smoking Status: Tobacco use Status Tobacco use date assessed 10/17/24 10/18/24 08:22 Patient Tobacco Use Status Never used Tobacco 12/20/24 08:37 e-Cigarette/Vaping Use Never Used 12/20/24 08:37 Thrive Assessment: Date of Thrive Assessment Date Thrive assessed 09/20/24 10/18/24 08:22 Currently or been in a relationship where the following occur: No concerns reported Const Other: General: no acute distress and well developed Nutritional Appearance: well nourished Orientation/consciousness: patient oriented x3 HENMT Head: Yes normocephalic and Yes atraumatic Eyes General: appearance normal, both eyes and all related structures Pupils: Equal, round and reactive pupils present EOM: EOMs intact bilaterally Resp Effort & Inspection: normal respiratory effort Auscultation: clear to auscultation bilaterally Cardio Rate: regular rate Rhythm: regular rhythm Heart sounds: S1 normal heart sound present, S2 normal heart sound present, no gallops, no murmurs and no rubs GI Palpation (GI): No Abdominal aortic bruit present, Soft to palpation, nontender, No hepatosplenomegaly present and No Rebound tenderness present Auscultation: normal bowel sounds General: Yes no CVA tenderness Back/Spine/Pelvis Back: no CVA tenderness Cervical Spine: cervical ROM normal and No Cervical spine tenderness Thoracic/Lumbar Spine: thoraco-lumbar ROM normal, No pain with thoraco-lumbar ROM, No thoracic spinal tenderness and No lumbar spinal tenderness Extrem General: Yes normal to inspection, No edema and No calf tenderness Skin General: warm and dry. Normal skin color. Normal skin turgor Neuro General: patient oriented x3, gait normal and no focal neuro deficit Cranial nerves: Yes Equal, round and reactive pupils present Cognition (Neuro): normal cognition Gait exam (Neuro): Normal gait present Sensory Exam: No Sensory deficit (Neuro) Psych Appearance: grossly normal Affect: normal affect Attitude: cooperative Thought process: Normal thought process present Coding Level of Care Code Est Pt Level 3 (02987) Diagnoses Hypertension I10 Hyperlipidemia E78.5 Vitamin D deficiency E55.9 Assessment & Plan Assessment & Plan (1) Hypertension: Code(s): I10 - Essential (primary) hypertension Category: Medical Plan: Resting blood pressure is 136/66, within goal of less than 140/80. Continue current treatment regimen. Low-sodium diet encouraged. Follow-up in 3 months or sooner with symptoms or concerns. Verbalized understanding and agreed with the plan. (2) Hyperlipidemia: Code(s): E78.5 - Hyperlipidemia, unspecified Category: Medical Plan: Recent triglycerides, total cholesterol, and LDL levels are elevated, 228, 223, and 139 respectively; previous levels were 188, 242, and 162 respectively; HDL level is slightly low, 39. Declines medication treatment at this time and notes that he will continue to make lifestyle changes. Advised to limit foods high in saturated fat and avoid foods high in trans fat. Routine exercise encouraged. Fast for 10-12 hours, may drink water, and perform lipid panel blood work 2-3 days before next visit. Follow-up in 3 months. Verbalized understanding and agreed with the plan. (3) Vitamin D deficiency: Code(s): E55.9 - Vitamin D deficiency, unspecified Category: Medical Plan: Recent vitamin-D level is normal. Continue current treatment regimen.
[2024-12-20 08:37] VITALS: BP 136/66; PULSE 62; RESP 16; TEMP 36.3; O2SAT 99; BMI 28.6
== END 2024-12-20 08:53 | disposition home or self-care (01) ==
LOC: HO.HMCFM 08:31
PROVIDERS: PCP Nurse Practitioner Family; Visit Provider Nurse Practitioner Family
DX: I10 Essential (primary) hypertension (principal); E78.5 Hyperlipidemia, unspecified; E55.9 Vitamin D deficiency, unspecified

== ENCOUNTER → 2024-12-20 08:30 | Outpatient (BNVA) | payer OTHER, SELFPAY | PROVIDERS: PCP Nurse Practitioner Family; Visit Provider Nurse Practitioner Family | DX: I10 Essential (primary) hypertension (principal); E78.5 Hyperlipidemia, unspecified; E55.9 Vitamin D deficiency, unspecified | CPT/HCPCS: 99212 ==

== ENCOUNTER 2024-12-28 14:53 | Outpatient (AMB) | payer OTHER, SELFPAY ==
[2024-12-28 15:00] VITALS: BMI 28.6
--- NOTE | 2024-12-28 15:00 | A.OFFVIS_ITS ---
Vital Signs 12/28/24 15:00 Height 5 ft 10 in Weight 199 lb BMI 28.6 Intake Visit Reasons: MRI-Follow up, Left knee pain and giving way Intake Note: Lloyd is a 59 year old male who presents with complaints of progressively worsening left knee pain and giving way. He describes his pain as sharp in nature. Most of the pain is along the medial aspect of his knee. The patient's symptoms have gotten worse over the last 5 years in spite of continued non operative treatments. He has failed the last 6 weeks of conservative treatment which has included Tylenol, Naprosyn and a home exercise program. He states that his left knee will give out several times per day. 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 Current occupational exposures/hazards: No Cognitive needs: No Hearing needs: No Vision needs: Yes Physical Exam Vital Signs: BMI result Body Mass Index 28.6 Const Other: Well-nourished well-developed very friendly male awake alert and oriented x3 in no acute distress Extrem Other: Bilateral lower extremity examination shows good capillary refill, no skin lesions noted, normal sensation light touch Left knee examination shows a minimal effusion, mild crepitus with range of motion, tenderness along his medial joint line, positive Camila's test, no instability Results Reviewed Results Reviewed: Standing full weight-bearing x-rays of the patient's left knee show mild diffuse joint space narrowing, no acute bony abnormalities MRI of the patient's left knee shows mild diffuse degenerative changes as well as a tear of the medial meniscus Assessment & Plan Assessment & Plan (1) Tear of medial meniscus of left knee: Code(s): S83.242A - Other tear of medial meniscus, current injury, left knee, initial encounter Category: Medical Plan Mr. Mabry presents with progressively worsening left knee pain and mechanical symptoms due to a medial meniscus tear. I had a lengthy discussion with the patient regarding the treatment options. At this point he has failed continued non operative treatments. The risks and benefits of left knee arthroscopic surgery were discussed at length with the patient. The patient wishes to proceed with surgery. Does understand that he may not get 100% relief of his symptoms depending on the severity of his degenerative changes. He will be scheduled for next available date. Surgery will involve left knee arthroscopic partial medial meniscectomy. Feel free to call me at any time should questions regarding his orthopedic management arise. I spent 22 minutes in reviewing the patient's records and imaging studies, seeing the patient and documenting in the medical record. Coding Level of Care Code Est Pt Level 3 (90843) Complex EM visit Add On G2211 Diagnoses Tear of medial meniscus of left knee S83.242A
== END 2024-12-28 15:30 | disposition home or self-care (01) ==
LOC: HO.HOS 14:54
PROVIDERS: PCP Nurse Practitioner Family; Visit Provider Orthopaedic Surgery
DX: S83.242A Other tear of medial meniscus, current injury, left knee, initial encounter (principal)
CPT/HCPCS: 99214

== ENCOUNTER → 2024-12-28 14:53 | Outpatient (BNVA) | payer OTHER, SELFPAY | PROVIDERS: PCP Nurse Practitioner Family; Visit Provider Orthopaedic Surgery | DX: Z71.2 Person consulting for explanation of examination or test findings (principal); M25.562 Pain in left knee; S83.242A Other tear of medial meniscus, current injury, left knee, initial encounter | CPT/HCPCS: 99212 ==

== ENCOUNTER 2025-01-20 07:30 | Day surgery (SDC) | payer OTHER, SELFPAY ==
[2025-01-17 14:52] VITALS: BMI 28.6
[2025-01-20 08:05] VITALS: BMI 28.9
[2025-01-20] MEDS: Lactated Ringers 1,000 ML 100 ML IVCONT (08:10)
[2025-01-20 08:20] VITALS: BP 142/63; PULSE 60; RESP 18; TEMP 36.6; O2SAT 96
--- NOTE | 2025-01-20 10:45 | P.CONAN_ITS ---
Documented by User: Dana Hazel NP 01/18/25 15:05 HPI - Anesthesia Eval Consult details Narrative: 59 yr old male for left knee arthroscopy with partial medical mensicectomy HTN: well controlled on JOHN PMFSH Active Problems Active Problems: All Active Problems (Updated 01/17/25 @ 14:55 by Ranjana Moses, PRINCE) Tear of medial meniscus of left knee (Acute) Osteoarthritis of left knee (Acute) Vitamin D deficiency (Acute) Normocytic anemia (Acute) Hyperlipidemia (Acute) Normal physical examination, routine (Acute) Myopia (Acute) Vaccine counseling (Acute) Colon cancer screening (Acute) Chronic pain of left knee (Acute) Hypertension (Acute) Laboratory tests ordered as part of a complete physical exam (CPE) (Acute) Exposure to chemical inhalation (Acute) Past Medical History Medical History Vitamin D deficiency HLD (hyperlipidemia) HTN (hypertension) Family History Family History Father Asthma High blood pressure Diabetes Cardiovascular disease Mother High blood pressure Surgical History Surgical History (Updated 01/20/25 @ 08:25 by Anastacia Fay RN) No pertinent past surgical history Social History Social History Housing: House Are you a primary medical care evaluation specialist to a significant other at home: No Do you presently have visiting nurse or other home services: No Alcohol intake: never Patient Tobacco Use Status: Never used Tobacco e-Cigarette/Vaping Use: Never Used Second Hand Smoke Exposure: No Have you been hit, kicked, punched, or otherwise hurt by someone within the past year? 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 Current occupational exposures/hazards: No Cognitive needs: No Hearing needs: No Vision needs: Yes Meds Allergies Allergy/AdvReac Type Severity Reaction Status Date / Time No Known Allergies Allergy Verified 01/20/25 08:21 Active Medications: Current Medications Cefazolin Sodium/Dextrose (Ancef) 2 gm in 50 mls @ 100 mls/hr IV PREOP ONE Stop: 01/20/25 06:05 Exam Height,Weight and Vital Signs: Height 5 ft 10 in Weight 90.265 kg Pertinent Lab Results Pertinent Lab Results: Laboratory Tests 09/27/24 13:27 WBC 6.8 RBC 4.38 L Hgb 13.5 L Hct 41.2 L Plt Count 176 Sodium 140 Potassium 4.3 BUN 11 Documented by User: Estella Whiting DO 01/20/25 11:03 PMFSH Past Medical History Medical History Vitamin D deficiency HLD (hyperlipidemia) HTN (hypertension) Family History Family History Father Asthma High blood pressure Diabetes Cardiovascular disease Mother High blood pressure Family history of problems with anesthesia: No Surgical History Surgical History (Updated 01/20/25 @ 08:25 by Anastacia Fay RN) No pertinent past surgical history History of Problems with Anesthesia: No Social History Social History Housing: House Are you a primary medical care evaluation specialist to a significant other at home: No Do you presently have visiting nurse or other home services: No Alcohol intake: never Patient Tobacco Use Status: Never used Tobacco e-Cigarette/Vaping Use: Never Used Second Hand Smoke Exposure: No Have you been hit, kicked, punched, or otherwise hurt by someone within the past year? 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 Current occupational exposures/hazards: No Cognitive needs: No Hearing needs: No Vision needs: Yes Meds Allergies Allergy/AdvReac Type Severity Reaction Status Date / Time No Known Allergies Allergy Verified 01/20/25 08:21 Exam Exam Date and Time: 01/20/25 1045 Height,Weight and Vital Signs: Height 5 ft 10 in Weight 90.265 kg Vital Signs Temperature 97.9 F 01/20/25 08:20 Pulse Rate 60 01/20/25 08:20 Respiratory Rate 18 01/20/25 08:20 Blood Pressure 142/63 H 01/20/25 08:20 Pulse Oximetry 96 01/20/25 08:20 Oxygen Delivery Method Room Air 01/20/25 08:20 Temperature 97.9 F 01/20/25 08:20 Pulse Rate 60 01/20/25 08:20 Respiratory Rate 18 01/20/25 08:20 Blood Pressure 142/63 H 01/20/25 08:20 Pulse Oximetry 96 01/20/25 08:20 Oxygen Delivery Method Room Air 01/20/25 08:20 Airway Mallampati Class: III TM Dist: >3cm Neck ROM: Full Loose/Missing/Broken Teeth: No (patient denies any loose or broken teeth) Heart: S1S2 Lungs: CTAB Assessment and Plan Assessment Anesthesia Assessment: Anesthesia Plan Discussed and Chart Reviewed Final Anesthetic Review Family History of Problems with Anesthesia: No History of Problems with Anesthesia: No NPO: Yes ASA Class: II Final Preanesthetic Review: No Changes in Pt Med Stat, Meds/Allgs Chart Reviewed, Consent Obtained/Reviewed and Anes Risks/Benef Reviewed Patient Risk: Low Procedure Risk: Low Anesthetic Plan Anesthetic Plan: GA and Agree w/ Assess. and Plan Disposition: Standard PACU
--- NOTE | 2025-01-20 10:56 | PC.NURSE ---
report given to leti camacho rn at this time. aware of 3 spots on preop record to sign once completed.
[2025-01-20 12:22] VITALS: BP 156/89; PULSE 61; RESP 16; TEMP 36.1; O2SAT 97
[2025-01-20 12:25] VITALS: BP 154/80; PULSE 58; RESP 16; O2SAT 100
[2025-01-20 12:30] VITALS: BP 155/84; PULSE 57; RESP 16; O2SAT 98
--- NOTE | 2025-01-20 12:31 | PM.OP ---
Brief Operative Note Date of Service: 01/20/25 Pre-op diagnosis: Left knee medial meniscus tear, left knee degenerative joint disease Post-op diagnosis: same Procedure: Left knee arthroscopic partial medial meniscectomy, left knee arthroscopic chondroplasty of the undersurface of the patella, medial femoral condyle and the trochlear groove Implants: none Surgeon: Enrique Self MD Anesthesia: GLMA Was an Flour Broker used for this Procedure?: No Estimated blood loss (mL): 10 Pathology: none sent Condition: stable Disposition: PACU
--- NOTE | 2025-01-20 12:32 | P.OP_ITS ---
Operative Note Operative Note Date of Service: 01/20/25 Narrative: After the patient was identified as Lloyd Mabry and his left knee was initialed by myself they were brought to the operating room where general anesthesia was induced by the anesthesiologist in routine fashion. The patient was given 2 g of IV Ancef preoperatively for infection prophylaxis. The patient's left lower extremity was prepped and draped in sterile fashion. A formal time-out was completed. Marcaine was injected into the planned incision sites as well as the patient's left knee joint. A #11 scalpel blade was used to make an anterolateral portal 1 cm proximal to the joint line and 1 cm lateral to the p atellar tendon. Blunt trocar technique was used to enter the suprapatellar pouch with the knee in extension. Diagnostic arthroscopy showed multiple bands of thickened plica which would be excised at the end of the procedure. There were no loose bodies or abnormalities found in either the medial or lateral gutters. The articular surface of the patella showed diffuse grades 1 and 2 degenerative changes. The trochlear groove articular surface showed diffuse grades 2 and 3 degenerative changes. The patient's knee was flexed to 45 degrees and a valgus force was placed upon it. The medial compartment was entered. An anteromedial portal was made 1 cm proximal to the joint line and 1 cm medial to the patellar tendon. Probing of the medial meniscus showed a radial tear of the posterior horn. A partial medial meniscectomy was performed using the arthroscopic shaver. Following the partial meniscectomy the remainder of the meniscus tissue was stable. There were diffuse grades 1 and 2 d egenerative changes of the medial femoral condyle as well as grades 1 and 2 degenerative changes of the medial tibial plateau. The articular surface of the medial femoral condyle was then made smooth using the arthroscopic shaver. The articular surface of the medial tibial plateau was already smooth so no chondroplasty was indicated. The patient's knee was placed into a neutral position. There was no injury to the anterior cruciate ligament. The patient's knee was then placed in the figure of 4 position and the lateral compartment was entered. There was no evidence of lateral meniscus tearing. There were minimal degenerative changes of the lateral femoral condyle and lateral tibial plateau. The patient's knee was once again brought into extension and the suprapatellar pouch was entered. The arthroscopic shaver and the ArthroCare Wand were used to excise the thickened bands of plica. The undersurface of the patella and the trochlear groove were then made smooth using the arthroscopic shaver. The knee joint was irrigated and then drained. All arthroscopic instruments were removed. The 2 portals were closed with 3-0 nylon interrupted suture. The knee joint was injected with Marcaine. Dry sterile dressing and Rio bandages were placed over the patient's knee. The patient was awoken and extubated in the operating room. The patient was transferred to the recovery room in stable condition.
[2025-01-20 12:35] VITALS: BP 159/84; PULSE 57; RESP 16; O2SAT 98
[2025-01-20 12:50] VITALS: BP 169/85; PULSE 70; RESP 16; TEMP 36.1; O2SAT 96
== END 2025-01-20 13:27 | disposition home or self-care (01) ==
PROVIDERS: PCP Nurse Practitioner Family; Visit Provider Orthopaedic Surgery
PROC: (CPT 29870; principal; 2025-01-20 11:00)
DX: M23.222 Derangement of posterior horn of medial meniscus due to old tear or injury, left knee (principal); M17.12 Unilateral primary osteoarthritis, left knee; M25.562 Pain in left knee; M23.52 Chronic instability of knee, left knee; M67.52 Plica syndrome, left knee; I10 Essential (primary) hypertension; E78.5 Hyperlipidemia, unspecified; E55.9 Vitamin D deficiency, unspecified; Z79.899 Other long term (current) drug therapy
CPT/HCPCS: 29881; J0131; J0165; J0690; J0696; J1100; J1885; J2003; J2371; J2405; J2704; J2795; J3010

== ENCOUNTER → 2025-01-20 07:30 | Outpatient (BNV) | payer OTHER, SELFPAY | PROVIDERS: PCP Nurse Practitioner Family; Visit Provider Orthopaedic Surgery | DX: S83.242A Other tear of medial meniscus, current injury, left knee, initial encounter (principal) | CPT/HCPCS: 29881 ==

== ENCOUNTER 2025-02-02 13:40 | Outpatient (AMB) | payer OTHER, SELFPAY ==
--- NOTE | 2025-02-02 13:46 | A.OFFVIS_ITS ---
Intake Visit Reasons: PO LT knee 01/20/25 Intake Note: Lloyd is a 59 year old man who presents with complaints of mild to moderate discomfort in his left knee after undergoing left knee arthroscopic surgery on 01/20/2025. He continues with his home stretching program. He denies any fevers or chills. He does take ibuprofen as needed for his discomfort. Allergies No Known Allergies Allergy (Verified 02/02/25 13:47) Medication List - Last Reconciled 02/02/25 by Enrique Self MD cholecalciferol (vitamin D3) 25 mcg PO DAILY 90 days lisinopril 20 mg PO DAILY 30 days oxycodone 5 mg PO Q6H PRN PFSH Medical History (Updated 02/02/25 @ 13:49 by Enrique Self MD) Vitamin D deficiency HLD (hyperlipidemia) HTN (hypertension) Surgical History No pertinent past surgical history Family History Father Asthma High blood pressure Diabetes Cardiovascular disease Mother High blood pressure Social History Housing: House Are you a primary primary care nurse practitioner to a significant other at home: No Do you presently have visiting nurse or other home services: No Alcohol intake: never Patient Tobacco Use Status: Never used Tobacco e-Cigarette/Vaping Use: Never Used Second Hand Smoke Exposure: No service: No Current occupational status: employed 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 Mabry is doing well after undergoing left knee arthroscopic surgery on 01/20/2025. His sutures were removed and Steri-Strips placed over his incisions. He will continue taking ibuprofen as needed for his discomfort. He will continue with his gentle stretching exercises. He will contact me prior to his follow-up appointment in 6-8 weeks should any questions or concerns arise. Feel free to call me at any time should questions regarding his orthopedic management arise. Coding Level of Care Code Global (26464) Diagnoses Left knee pain M25.562
== END 2025-02-02 14:00 | disposition home or self-care (01) ==
LOC: HO.HOS 13:40
PROVIDERS: PCP Nurse Practitioner Family; Visit Provider Orthopaedic Surgery
DX: M25.562 Pain in left knee (principal)
CPT/HCPCS: 99024

== ENCOUNTER → 2025-02-02 13:40 | Outpatient (BNVA) | payer OTHER, SELFPAY | PROVIDERS: PCP Nurse Practitioner Family; Visit Provider Orthopaedic Surgery | DX: M25.562 Pain in left knee (principal) | CPT/HCPCS: 99212 ==

== ENCOUNTER 2025-03-24 12:23 | Outpatient (AMB) | payer OTHER, SELFPAY ==
--- NOTE | 2025-03-24 12:26 | MHC.PC.OV ---
Vital Signs 03/24/25 12:30 Height 5 ft 10 in Weight 212 lb BMI 30.4 BP 130/70 Blood Pressure Location Lt brachial Position Sitting Respiration 16 Pulse 76 Pulse Source Pulse Oximeter Temp 97.9 F Temp Source Oral Pulse Oximetry (%) 99 Oxygen Delivery Method Room Air Intake Visit Reasons: 3 mos HTN, HLD Intake Note: patient here for 3 month follow up on HTN and HLD Public Relations Supervisor Required: No Allergies No Known Allergies Allergy (Verified 03/24/25 12:38) Medication List - Last Reconciled 03/24/25 by Robert Ingram CNP cholecalciferol (vitamin D3) 25 mcg PO DAILY 90 days lisinopril 20 mg PO DAILY 30 days oxycodone 5 mg PO Q6H PRN Tobacco use date assessed: 03/24/25 Dental Screening Dental Screen Date: 03/24/25 Did you have a dental visit in the last 12 months?: Yes Did you have a dental problem in the last 6 months where you did not have access to dental care?: No Was dental information given to patient?: No HPI HPI Comments History of Present Illness Details 59-year-old male presents for hypertension and hyperlipidemia follow-up. He admits to taking lisinopril and vitamin D3 as prescribed without adverse reactions. He notes that he has been making healthy lifestyle changes. He wants to initiate treatment for his cholesterol as advised by his . No acute symptoms at this time. He did not get lipid panel blood work done for this visit as planned because they were inadvertently not ordered. [facility] Medical History (Updated 02/02/25 @ 13:49 by Enrique Self MD) Vitamin D deficiency HLD (hyperlipidemia) HTN (hypertension) Surgical History No pertinent past surgical history Family History Father Asthma High blood pressure Diabetes Cardiovascular disease Mother High blood pressure Social History Housing: House Are you a primary home health aide caregiver to a significant other at home: No Do you presently have visiting nurse or other home services: No Alcohol intake: never Patient Tobacco Use Status: Never used Tobacco e-Cigarette/Vaping Use: Never Used Second Hand Smoke Exposure: No service: No Current occupational status: employed 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 Current occupational exposures/hazards: No Cognitive needs: No Hearing needs: No Vision needs: Yes Questionnaire Thrive Questionnaire Date Thrive assessed: 09/20/24 I am a: Patient What is your living situation today?: I have a steady place to live Within the past 12 months, did the food you bought not last and you didn't have the money to get more?: Never true Within the past 12 months, did you worry whether your food would run out before you got money to buy more?: Never true Do you have trouble paying for medicines?: No Do you have trouble getting transportation to medical appointments?: No Do you have trouble paying your heating and electricity bill?: No Do you have trouble taking care of your child, family member or friend?: No Do you have trouble with day-to-day activities such as bathing, preparing meals, shopping, managing finances, etc.?: No Are you currently unemployed and looking for a job?: No Are you interested in more education?: No Please select the resources that you would like help with: None Currently or been in a relationship where the following occur: No concerns reported THRIVE Score: 0 MACY-7 AMB Questionnaire MACY-7 Date MACY - 7 assessed: 09/27/24 Source: Developed by Drs. Clark Kingston, Monica Neumann, Dimitri Herr and colleagues, with an educational refugio from [employer]. Review of Systems Const Details: Const Denies chills, Denies fatigue, Denies fever(s), Denies headache(s) and Denies weakness ENT Denies dizziness and Denies headache(s) Card Denies chest pain, Denies lightheadedness, Denies dyspnea and Denies other (Palpitations) Resp Denies cough, Denies dyspnea, Denies wheezing and Denies other ( shortness of breath) GI Denies abdominal pain, Denies melena, Denies hematochezia, Denies change in bowel habits, Denies dyspepsia and Denies nausea Denies hematuria and Denies dysuria Musc Denies abnormal gait, Denies myalgias, Denies arthralgias, Denies numbness and Denies tingling Skin/Breast Denies rash, Denies unusual bruising and Denies wounds Neuro Denies abnormal gait, Denies dizziness, Denies headache(s), Denies memory loss, Denies numbness, Denies Sensory deficit (Neuro), Denies tingling and Denies weakness Psych Denies anxiety, Denies depression, Denies memory loss Endo Denies cold intolerance, Denies fatigue, Denies heat intolerance, Denies polydipsia and Denies polyuria Aller/Immun Denies wheezing Physical exam (Primary Care) Vital Signs: Last Vital Signs Temp 97.9 F 03/24/25 12:30 Pulse 76 03/24/25 12:30 Resp 16 03/24/25 12:30 BP 130/70 03/24/25 12:30 Pulse Ox 99 03/24/25 12:30 Oxygen Delivery Method Room Air 03/24/25 12:30 BMI result Body Mass Index 30.4 Tobacco/Smoking Status: Tobacco use Status Tobacco use date assessed 03/24/25 03/24/25 12:33 Patient Tobacco Use Status Never used Tobacco 03/24/25 12:33 e-Cigarette/Vaping Use Never Used 03/24/25 12:33 Thrive Assessment: Date of Thrive Assessment Date Thrive assessed 09/20/24 03/24/25 12:33 Currently or been in a relationship where the following occur: No concerns reported Const Other: General: no acute distress and well developed Nutritional Appearance: well nourished Orientation/consciousness: patient oriented x3 HENMT Head: Yes normocephalic and Yes atraumatic Eyes General: appearance normal, both eyes and all related structures Pupils: Equal, round and reactive pupils present EOM: EOMs intact bilaterally Resp Effort & Inspection: normal respiratory effort Auscultation: clear to auscultation bilaterally Cardio Rate: regular rate Rhythm: regular rhythm Heart sounds: S1 normal heart sound present, S2 normal heart sound present, no gallops, no murmurs and no rubs GI Palpation (GI): No Abdominal aortic bruit present, Soft to palpation, nontender, No hepatosplenomegaly present and No Rebound tenderness present Auscultation: normal bowel sounds General: Yes no CVA tenderness Back/Spine/Pelvis Back: no CVA tenderness Cervical Spine: cervical ROM normal and No Cervical spine tenderness Thoracic/Lumbar Spine: thoraco-lumbar ROM normal, No pain with thoraco-lumbar ROM, No thoracic spinal tenderness and No lumbar spinal tenderness Extrem General: Yes normal to inspection, No edema and No calf tenderness Skin General: warm and dry. Normal skin color. Normal skin turgor Neuro General: patient oriented x3, gait normal and no focal neuro deficit Cranial nerves: Yes Equal, round and reactive pupils present Cognition (Neuro): normal cognition Gait exam (Neuro): Normal gait present Sensory Exam: No Sensory deficit (Neuro) Psych Appearance: grossly normal Affect: normal affect Attitude: cooperative Thought process: Normal thought process present Coding Level of Care Code Est Pt Level 3 (13091) Diagnoses Hypertension I10 Hyperlipidemia E78.5 Assessment & Plan Assessment & Plan (1) Hypertension: Code(s): I10 - Essential (primary) hypertension Category: Medical Plan: Blood pressure is 130/70, within goal of less than 140/90. Continue current treatment regimen. Routine exercise encouraged. Follow-up in 3 months for transfer of care with a new PCP, hypertension, and hyperlipidemia. Return sooner with symptoms or concerns. Verbalized understanding and agreed with treatment plan. (2) Hyperlipidemia: Code(s): E78.5 - Hyperlipidemia, unspecified Category: Medical Plan: Lipid panel blood work ordered. Advised to perform blood work at his earliest convenience. Will review results and call patient to start treatment. Verbalized understanding and agreed with the plan. Orders: Orders Lipid Panel Today E78.5 - Hyperlipidemia, unspecified
[2025-03-24 12:30] VITALS: BP 130/70; PULSE 76; RESP 16; TEMP 36.6; O2SAT 99; BMI 30.4
== END 2025-03-24 12:46 | disposition home or self-care (01) ==
LOC: HO.HMCFM 12:25
PROVIDERS: PCP Nurse Practitioner Family; Visit Provider Nurse Practitioner Family
DX: I10 Essential (primary) hypertension (principal); E78.5 Hyperlipidemia, unspecified

== ENCOUNTER → 2025-03-24 12:23 | Outpatient (BNVA) | payer OTHER, SELFPAY | PROVIDERS: PCP Nurse Practitioner Family; Visit Provider Nurse Practitioner Family | DX: I10 Essential (primary) hypertension (principal); E78.5 Hyperlipidemia, unspecified | CPT/HCPCS: 99212 ==

== ENCOUNTER 2025-03-25 08:15 | Outpatient (REF) | payer OTHER, SELFPAY ==
[2025-03-25 11:57] LABS: Cholesterol 250 mg/dL (<200); HDL Cholesterol 40 mg/dL (>40); Triglycerides 272 mg/dL (<150)
== END 2025-03-25 08:16 | disposition home or self-care (01) ==
LOC: HO.HMGCLDS 08:15
PROVIDERS: PCP Nurse Practitioner Family; Visit Provider Nurse Practitioner Family
DX: E78.5 Hyperlipidemia, unspecified (principal)
CPT/HCPCS: 36415; 80061

== ENCOUNTER 2025-04-03 12:54 | Outpatient (AMB) | payer OTHER, SELFPAY ==
[2025-04-03 12:56] VITALS: BMI 30.4
--- NOTE | 2025-04-03 12:56 | A.OFFVIS_ITS ---
Vital Signs 04/03/25 12:56 Height 5 ft 10 in Weight 212 lb BMI 30.4 Intake Visit Reasons: left knee DOS: 01/20/25 Intake Note: Lloyd is a 59 year old man who presents with complaints of mild discomfort in his left knee after undergoing left knee arthroscopic surgery, 01/20/2025. Patient reports he has been working on his daily home exercises and he feels he is doing well. Reports his pain from prior to surgery has resolved and is having soreness and residual discomfort from his surgery. He notices the discomfort mostly when he is going up and down stairs. He does not take any medicines for his discomfort. PCP: Robert Ingram CNP Allergies No Known Allergies Allergy (Verified 04/03/25 12:56) Medication List - Last Reconciled 04/03/25 by Enrique Self MD atorvastatin (Lipitor) 20 mg PO BEDTIME 30 days cholecalciferol (vitamin D3) 25 mcg PO DAILY 90 days lisinopril 20 mg PO DAILY 30 days [facility] Medical History Tear of medial meniscus of left knee Vitamin D deficiency HLD (hyperlipidemia) HTN (hypertension) Surgical History H/O arthroscopy of left knee No pertinent past surgical history Family History Father Asthma High blood pressure Diabetes Cardiovascular disease Mother High blood pressure Social History Housing: House Are you a primary nanny caregiver to a significant other at home: No Do you presently have visiting nurse or other home services: No Alcohol intake: never Patient Tobacco Use Status: Never used Tobacco e-Cigarette/Vaping Use: Never Used Second Hand Smoke Exposure: No service: No Current occupational status: employed 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 Mabry continues to do well after undergoing left knee arthroscopic surgery on 01/20/2025. He will continue with activities as tolerated. I discussed with the patient the fact that his discomfort should continue to improve over the next few months. He will contact me prior to his follow-up appointment in 3 months should any questions or concerns arise. Feel free to call me at any time should questions regarding his orthopedic management arise. Coding Level of Care Code Global (15466) Diagnoses Left knee pain M25.562
== END 2025-04-03 13:08 | disposition home or self-care (01) ==
LOC: HO.HOS 12:54
PROVIDERS: PCP Nurse Practitioner Family; Visit Provider Orthopaedic Surgery
DX: M25.562 Pain in left knee (principal)
CPT/HCPCS: 99024

== ENCOUNTER → 2025-04-03 12:54 | Outpatient (BNVA) | payer OTHER, SELFPAY | PROVIDERS: PCP Nurse Practitioner Family; Visit Provider Orthopaedic Surgery | DX: M25.562 Pain in left knee (principal); Z98.890 Other specified postprocedural states | CPT/HCPCS: 99212 ==

== ENCOUNTER 2025-04-19 15:37 | Outpatient (AMB) | payer OTHER, SELFPAY ==
--- NOTE | 2025-04-19 15:43 | A.OFFVIS_ITS ---
Vital Signs 04/19/25 15:45 Height 5 ft 10 in Weight 205 lb BMI 29.4 BP 144/76 H Blood Pressure Location Rt brachial Position Sitting Pulse 74 Pulse Source Pulse Oximeter Pulse Oximetry (%) 98 Oxygen Delivery Method Room Air Intake Visit Reasons: Colonoscopy Screening Intake Note: New pt for initial colonoscopy screening. CC; Pt denies any GI sx or concerns at this time. No pertinent surgical or FMHx. [employer] Required: No Accompanied by: Self / Same As Patient Allergies No Known Allergies Allergy (Verified 04/03/25 12:56) HPI HPI Colonoscopy Screening: Details: 59 year old? male with past medical history of osteoarthritis, normocytic anemia, hyperlipidemia, myopia, hypertension is here today for pre colonoscopy screening.? Patient was sent to us by his PCP.? This is his first colonoscopy screening.? Patient denies any gastrointestinal symptoms in the past or at present.? Denies any personal or family history of gastrointestinal disease, colon polyps, or CRC.? Denies history of difficulty with sedation or anesthesia in the past.? Negative for history of sleep apnea.? Denies any history of cardiac, renal, pulmonary, or hepatic disease.?? No history of infectious? diseases like hepatitis A, B, C, HIV or tuberculosis.? Patient is not on any anticoagulation PFSH Medical History Tear of medial meniscus of left knee Vitamin D deficiency HLD (hyperlipidemia) HTN (hypertension) Surgical History H/O arthroscopy of left knee No pertinent past surgical history Family History Father Asthma High blood pressure Diabetes Cardiovascular disease Mother High blood pressure Social History Housing: House Are you a primary child day care teacher to a significant other at home: No Do you presently have visiting nurse or other home services: No Alcohol intake: never Patient Tobacco Use Status: Never used Tobacco e-Cigarette/Vaping Use: Never Used Second Hand Smoke Exposure: No service: No Current occupational status: employed 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 Current occupational exposures/hazards: No Cognitive needs: No Hearing needs: No Vision needs: Yes Review of Systems Const Denies weight gain and Denies weight loss ENT Reports no additional complaints, Denies dysphagia and Denies odynophagia Card Reports no additional complaints Resp Reports no additional complaints GI Denies abdominal pain, Denies belching, Denies melena, Denies bloating, Denies change in bowel habits, Denies dysphagia, Denies excessive flatus, Denies dyspepsia, Denies heartburn, Denies diarrhea, Denies loose stools, Denies nausea, Denies odynophagia and Denies vomiting Reports no additional complaints Musc Reports no additional complaints Neuro Reports no additional complaints Psych Reports no additional complaints Endo Reports no additional complaints Physical Exam Vital Signs: BMI result Body Mass Index 29.4 Const General: healthy appearing, no acute distress and well developed Nutritional Appearance: well nourished Orientation/consciousness: patient oriented x3 Resp Effort & Inspection: normal respiratory effort, able to speak in complete sentences, no tracheal deviation and symmetric chest movement Auscultation: clear to auscultation bilaterally Cardio Rate: regular rate GI Inspection: Yes normal to inspection and No distended Palpation (GI): Soft to palpation, not firm, nontender and No hepatosplenomegaly present Auscultation: normal bowel sounds General: Yes no CVA tenderness Back/Spine/Pelvis Back: no CVA tenderness Skin General skin exam: elasticity normal, turgor normal and dry skin Neuro General: patient oriented x3 Psych Appearance: grossly normal Mental Status: mental status grossly normal Assessment & Plan Assessment & Plan (1) Colon cancer screening: Code(s): Z12.11 - Encounter for screening for malignant neoplasm of colon Category: Medical Plan Patient denies any GI, cardiac or respiratory symptoms.? Denies any issues with anesthesia in the past.? Denies any history of sleep apnea.? No history infectious diseases in the past or present.? Not on any anticoagulation therapy.? No family or personal history of colon cancer or polyps.? Patient denies melena, hematochezia, unintentional weight loss or ribbon like stools.? Discussed at length the pre-procedure,? prep, diet & medications as well as what to expect prior, during and after the procedure.?? Stressed the importance of good bowel prep.? Recommended the use of Vaseline or Calmoseptine OTC & baby wipes with bowel movements to promote comfort.? ?Patient verbalizes understanding and agrees to plan of care.? She was given the opportunity to ask questions and all questions answered.? We will see her after the procedure.? Orders: Referrals GI Procedure Notification Z12.11 - Encounter for screening for malignant neoplasm of colon Medications: New bisacodyl (Dulcolax (bisacodyl)) take 4 tabs at noon the day before your colonoscopy 20 mg (4 x 5 mg) PO ONCE 4 tabs 0RF constipation 1 day Z12.11 - Encounter for screening for malignant neoplasm of colon polyethylene glycol 3350 (Miralax) As directed by gastroenterology department at [facility] 238 grams PO ONCE 238 grams 0RF Z12.11 - Encounter for screening for malignant neoplasm of colon Coding Level of Care Code New Pt Level 3 (92446) Diagnoses Colon cancer screening Z12.11 Time Spent (min) 40 Comment 30 minutes spent with patient and additional 10 minutes spent reviewing her records
[2025-04-19 15:45] VITALS: BP 144/76; PULSE 74; O2SAT 98; BMI 29.4
== END 2025-04-19 15:59 | disposition home or self-care (01) ==
LOC: HO.HGI 15:38
PROVIDERS: PCP Nurse Practitioner Family; Visit Provider Nurse Practitioner Family
DX: Z01.818 Encounter for other preprocedural examination (principal); Z12.11 Encounter for screening for malignant neoplasm of colon
CPT/HCPCS: 99203

== ENCOUNTER → 2025-04-19 15:37 | Outpatient (BNVA) | payer OTHER, SELFPAY | PROVIDERS: PCP Nurse Practitioner Family; Visit Provider Nurse Practitioner Family | DX: Z12.11 Encounter for screening for malignant neoplasm of colon (principal) | CPT/HCPCS: 99202 ==

== ENCOUNTER 2025-04-28 08:31 | Outpatient (REF) | payer OTHER, SELFPAY ==
[2025-04-28 10:51] LABS: Cholesterol 170 mg/dL (<200); HDL Cholesterol 44 mg/dL (>40); Triglycerides 138 mg/dL (<150)
== END 2025-04-28 08:32 | disposition home or self-care (01) ==
LOC: HO.HMGCLDS 08:31
PROVIDERS: PCP Nurse Practitioner Family; Visit Provider Nurse Practitioner Family
DX: E78.5 Hyperlipidemia, unspecified (principal)
CPT/HCPCS: 36415; 80061